=== PATIENT | female | born 1965 | race Caucasian/White ===

== ENCOUNTER 2024-07-10 07:37 | Emergency (ER) | payer SELFPAY ==
[2024-07-10] MEDS ORDERED: Cephalexin 500 MG CAP ONE (08:23)
== END 2024-07-10 08:30 | disposition home or self-care (01) ==
LOC: MADERS 07:37
DX: L03.311 Cellulitis of abdominal wall (principal); I10 Essential (primary) hypertension; F17.290 Nicotine dependence, other tobacco product, uncomplicated
CPT/HCPCS: 99283